=== PATIENT | male | born 1995 | race Two or more races ===

== ENCOUNTER 2017-09-05 13:05 | Outpatient (CLI) | payer OTHER ==
--- NOTE | 2017-09-06 13:03 | MRI Report ---
EXAM: MRI LUMBAR SPINE WITHOUT CONTRAST EXAM DATE: 09/05/2017 01:55 PM. CLINICAL HISTORY: Radiculopathy, lumbar region. COMPARISON: None. TECHNIQUE: Multiplanar, multisequence T1-weighted and fluid-sensitive sequences of the lumbar spine f rom without contrast. Other: None. FINDINGS: No suspicious marrow replacement is present. The distal tip of the conus medullaris is seen at the le eyal of the inferior T12 endplate. Grade 1 retrolisthesis of L5 relative to S1 is present. T11 through L4: Posterior bulging of the annulus is present. No central canal or foraminal stenosis. L5-S1: A moderate left paracentral disk protrusion is seen. There is mass effect on the left S1 nerve root as it exits the thecal sac. The left ventral thecal sac is flattened. There is superior lateral recess narrowing on the right. No foraminal stenosis Facet/ligamentum flavum hypertrophy is seen in the mid and lower lumbar spine. IMPRESSION: 1. A moderate left paracentral disk protrusion is seen at L5-S1. This posteriorly displaces the left S1 nerve root after it exits the thecal sac. Comment: The following findings are so common in adults without low back pain that while we report th eir presence, they must be interpreted with caution and in the context of the clinical situation. (Re aaliyah Fontanez et al, Spine 2001) Prevalence of findings in patients without low back pain: Disk degeneration (any evidence): 92% Disk desiccation/T2 signal loss: 83% Disk height loss: 56% Disk bulge: 64% Disk protrusion: 32% Annular tear/high intensity zone: 38% [facility] Referring Provider Line: [phone] SITE ID: [id number]
== END 2017-09-05 13:06 | disposition home or self-care (01) ==
LOC: DI 13:05
PROVIDERS: ATTEND Family Medicine
DX: M51.27 Other intervertebral disc displacement, lumbosacral region (principal)
CPT/HCPCS: 72148